=== PATIENT | male | born 1950 | race Caucasian/White ===

== ENCOUNTER 2021-06-10 04:29 | Emergency (ER) | payer MEDICARE ==
[~2021-06-10] VITALS: Ht 185.4 cm; Wt 86.0 kg
[2021-06-10 05:33] LABS: ANION GAP 8 mmol/L (8-16); CALCIUM, TOTAL 8.7 mg/dL (8.8-10.5); CARBON DIOXIDE 28 mmol/L (22-29); CHLORIDE 109 mmol/L (98-107); CREATININE 1.11 mg/dL (0.60-1.30); GLOMERULAR FILTR. RATE CALC > 60 mL/min (>60); GLUCOSE,RANDOM 124 mg/dL (70-110); POTASSIUM 3.5 mmol/L (3.5-5.1); SODIUM SERUM 145 mmol/L (136-145); UREA NITROGEN, BLOOD 18 mg/dL (7-18)
[2021-06-10 05:35] LABS: BASOPHILS % (AUTO) 0.7 % (0.0-2.0); EOSINOPHILS % (AUTO) 1.1 % (1.0-6.0); HEMATOCRIT 35.5 % (41-53); HEMOGLOBIN 11.9 g/dL (13.5-17.5); LYMPHOCYTES % (AUTO) 11.9 % (22.0-44.0); MEAN CORPUSCULAR HEMOGLOBIN 30.7 pg (26.0-34.0); MEAN CORPUSCULAR HGB CONC 33.4 G/dL (31.0-37.0); MEAN CORPUSCULAR VOLUME 92 fL (80-100); MONOCYTES # (AUTO) 0.9 K/uL (0.1-1.0); MONOCYTES % (AUTO) 10.7 % (2.0-9.0); NEUTROPHILS # (AUTO) 6.1 K/uL (1.8-7.7); NEUTROPHILS % (AUTO) 75.6 % (40.0-70.0); PLATELET COUNT (AUTO) 228 K/uL (150-450); RED BLOOD CELL COUNT(AUTO) 3.87 MIL/uL (4.50-5.90); RED CELL DISTRIBUTION WIDTH 13.9 % (11.5-14.5)
[2021-06-10 05:39] LABS: ALANINE AMINOTRANSFERASE 11 U/L (12-78); ALBUMIN 3.2 g/dL (3.4-5.0); ALKALINE PHOSPHATASE 64 U/L (46-116); ASPARTATE AMINOTRANSFERASE 12 U/L (15-37); BILIRUBIN,TOTAL 0.5 mg/dL (0.1-1.0); LIPASE 72 U/L (73-393); TOTAL PROTEIN, SERUM 5.6 g/dL (6.4-8.2)
[2021-06-10] MEDS ORDERED: BISA10SU11 PR (06:44)
[2021-06-10] MEDS ORDERED: FLUO20CA36 PO (06:44)
[2021-06-10] MEDS ORDERED: ATOR40TA28 PO (06:44)
[2021-06-10] MEDS ORDERED: FLUD.1 PO (06:44)
[2021-06-10] MEDS ORDERED: CARB-98 PO (06:44)
[2021-06-10] MEDS ORDERED: TAMS-13 PO (06:44)
[2021-06-10] MEDS ORDERED: LAMO100 PO (06:44)
[2021-06-10] MEDS ORDERED: PROP10TA73 PO (06:47)
[2021-06-10] MEDS ORDERED: TRAZ-257 PO (06:47)
[2021-06-10] MEDS ORDERED: LEVO75 PO (06:47)
[2021-06-10 08:40] LABS: AMPHET/METH SCREEN,URINE NEGATIVE (NEGATIVE); APPEARANCE,URINE CLOUDY (CLEAR); BARBITURATE SCREEN, URINE NEGATIVE (NEGATIVE); BENZODIAZEPINES SCREEN,URINE POSITIVE (NEGATIVE); BILIRUBIN,URINE NEGATIVE (NEGATIVE); CANNABINOID SCREEN,URINE NEGATIVE (NEGATIVE); COCAINE SCREEN,URINE NEGATIVE (NEGATIVE); GLUCOSE, URINE (UA) NEGATIVE (NEGATIVE); KETONES,URINE NEGATIVE (NEGATIVE); LEUKOCYTE ESTERASE ,URINE TRACE (NEGATIVE); METHADONE SCREEN, URINE NEGATIVE (NEGATIVE); NITRATE,URINE NEGATIVE (NEGATIVE); OCCULT BLOOD,URINE MODERATE (NEGATIVE); OPIATE SCREEN,URINE NEGATIVE (NEGATIVE); PH,URINE 6.5 (5.0-8.0); PHENCYCLIDINE SCREEN,URINE NEGATIVE (NEGATIVE); PROTEIN,URINE TRACE (NEGATIVE); UROBILINOGEN,URINE 0.2 mg/dL (<=1.0)
[2021-06-10 08:57] LABS: BACTERIA,URINE Many /HPF (None Seen)
[2021-06-10] MEDS: CIPROFLOXACIN HCL 250 MG TABLET PO ONE (10:04)
[2021-06-10] MEDS: LORazepam 1 MG TABLET PO ONE (11:39)
[2021-06-10 12:37] VITALS: BP 104/68
== END 2021-06-10 13:42 | disposition home or self-care (01) ==
LOC: EMS 04:29
DX: F31.9 Bipolar disorder, unspecified (principal); N39.0 Urinary tract infection, site not specified; E11.9 Type 2 diabetes mellitus without complications; G20 Parkinson's disease
CPT/HCPCS: 36415; 80053; 80307; 81001; 83690; 84484; 85025; 87086; 99285; G0480

== ENCOUNTER 2021-06-10 16:35 | Emergency (ER) | payer MEDICARE ==
[~2021-06-10] VITALS: Ht 188 cm; Wt 75.0 kg
[~2021-06-10 16:35] MED LIST: ATOR40TA28 PO; BISA10SU11 PR; CARB-98 PO; FLUD.1 PO; FLUO20CA36 PO; LAMO100 PO; LEVO75 PO; PROP10TA73 PO; TAMS-13 PO; TRAZ-257 PO
[2021-06-10 23:25] VITALS: BP 190/110
[2021-06-11] MEDS ORDERED: AmLODIPine BESYLATE 5 MG TABLET PO ONE (00:15)
== END 2021-06-10 23:00 | disposition home or self-care (01) ==
LOC: EMS 16:35
DX: F31.9 Bipolar disorder, unspecified (principal); F41.9 Anxiety disorder, unspecified; E11.9 Type 2 diabetes mellitus without complications
CPT/HCPCS: 99284; Z7502; Z7610